=== PATIENT | female | born 1975 | race Caucasian/White ===

== ENCOUNTER → 2017-05-08 | Outpatient (CLI) | payer MEDICAID | END | disposition home or self-care (01) | LOC: CFH 11:53 | PROVIDERS: ATTEND Specialist | DX: Z12.31 Encounter for screening mammogram for malignant neoplasm of breast (principal) | CPT/HCPCS: 77063; G0202 ==

== ENCOUNTER → 2018-04-18 | Outpatient (CLI) | payer OTHER | END | disposition home or self-care (01) | LOC: CFH 15:58 | PROVIDERS: ATTEND Nurse Practitioner | DX: Z02.9 Encounter for administrative examinations, unspecified (principal) ==

== ENCOUNTER → 2021-05-12 | Outpatient (CLI) | payer BC | END | disposition home or self-care (01) | LOC: CVU 13:52 | PROVIDERS: ATTEND Family Medicine | DX: I06.1 Rheumatic aortic insufficiency (principal); I11.9 Hypertensive heart disease without heart failure; R94.31 Abnormal electrocardiogram [ECG] [EKG] | CPT/HCPCS: C8929; Q9957 ==